=== PATIENT | female | born 1990 | race Caucasian/White ===

== ENCOUNTER → 2020-02-25 10:35 | Outpatient (BNVA) | payer MEDICAID, SELFPAY | PROVIDERS: Family Provider Internal Medicine; PCP Pediatrics; Visit Provider Obstetrics & Gynecology | DX: Z01.419 Encounter for gynecological examination (general) (routine) without abnormal findings (principal) | CPT/HCPCS: 87624; 88175 ==

== ENCOUNTER → 2020-06-15 12:35 | Outpatient (BNVA) | payer MEDICAID, SELFPAY | PROVIDERS: Family Provider Internal Medicine; PCP Pediatrics; Visit Provider Obstetrics & Gynecology | DX: R87.610 Atypical squamous cells of undetermined significance on cytologic smear of cervix (ASC-US) (principal); R87.810 Cervical high risk human papillomavirus (HPV) DNA test positive; Z20.5 Contact with and (suspected) exposure to viral hepatitis | CPT/HCPCS: 86704; 86706; 87340; 88305 ==

== ENCOUNTER → 2021-02-13 11:06 | Outpatient (BNVA) | payer MEDICAID, SELFPAY | PROVIDERS: Family Provider Internal Medicine; PCP Pediatrics; Visit Provider Nurse Practitioner Women's Health | DX: N92.6 Irregular menstruation, unspecified (principal) | CPT/HCPCS: 81025 ==

== ENCOUNTER → 2021-03-01 09:14 | Outpatient (BNVA) | payer MEDICAID, SELFPAY | PROVIDERS: Family Provider Internal Medicine; PCP Pediatrics; Visit Provider Nurse Practitioner Women's Health | DX: Z34.80 Encounter for supervision of other normal pregnancy, unspecified trimester (principal) | CPT/HCPCS: 81000 ==

== ENCOUNTER → 2021-03-15 10:11 | Outpatient (BNVA) | payer MEDICAID, SELFPAY | PROVIDERS: Family Provider Internal Medicine; PCP Pediatrics; Visit Provider Obstetrics & Gynecology | DX: Z34.81 Encounter for supervision of other normal pregnancy, first trimester (principal) | CPT/HCPCS: 80307; 84315; 84443; 85025; 86592; 86762; 86803; 86850; 86900; 87086; 87340 ==

== ENCOUNTER → 2021-04-02 08:04 | Outpatient (BNVA) | payer MEDICAID, SELFPAY | PROVIDERS: Family Provider Internal Medicine; PCP Pediatrics; Visit Provider Obstetrics & Gynecology | DX: Z34.80 Encounter for supervision of other normal pregnancy, unspecified trimester (principal) | CPT/HCPCS: 81000; 87491; 87591; 87661 ==

== ENCOUNTER 2021-04-20 10:48 | Outpatient (CLI) | payer BC, MEDICAID, SELFPAY ==
[2021-04-20 11:16] VITALS: BMI 25.9
[2021-04-20] MEDS: ondansetron 2 mg/ML SDV 2 mL 4 MG IVP (11:30)
[2021-04-20] MEDS: dextrose 5%-lactated ringers 1,000 ML 999 ML IV ×2 (11:30→12:37)
== END 2021-04-20 13:40 | disposition home or self-care (01) ==
LOC: OPOB 10:58 → OBGYN 11:04
PROVIDERS: Family Provider Internal Medicine; PCP Pediatrics; Visit Provider Obstetrics & Gynecology
DX: O21.0 Mild hyperemesis gravidarum (principal)
CPT/HCPCS: 81000; 96360; 99211; J2405

== ENCOUNTER → 2021-05-24 11:23 | Outpatient (BNVA) | payer MEDICAID, SELFPAY | PROVIDERS: Family Provider Internal Medicine; PCP Pediatrics; Visit Provider Obstetrics & Gynecology | DX: Z34.81 Encounter for supervision of other normal pregnancy, first trimester (principal) | CPT/HCPCS: 81000 ==

== ENCOUNTER 2021-06-26 16:55 | Outpatient (CLI) | payer MEDICAID, SELFPAY ==
[2021-06-26 16:55] VITALS: BMI 25.8
[2021-06-26 17:16] VITALS: TEMP 35.7
[2021-06-26 17:17] VITALS: BP 117/58; PULSE 86
[2021-06-26 17:32] VITALS: BP 113/59; PULSE 84
[2021-06-26 17:43] VITALS: RESP 17
[2021-06-26 17:46] VITALS: BP 110/57; PULSE 84
[2021-06-26] MEDS: simethicone 80 mg Chew PO (17:55)
== END 2021-06-26 18:03 | disposition home or self-care (01) ==
LOC: OPOB 17:00 → OBGYN 17:03
PROVIDERS: Family Provider Internal Medicine; PCP Pediatrics; Visit Provider Obstetrics & Gynecology
DX: O26.899 Other specified pregnancy related conditions, unspecified trimester (principal); Z3A.00 Weeks of gestation of pregnancy not specified; R10.9 Unspecified abdominal pain; R14.0 Abdominal distension (gaseous)
CPT/HCPCS: 99211

== ENCOUNTER → 2021-06-28 08:54 | Outpatient (BNVA) | payer BC, MEDICAID, SELFPAY | PROVIDERS: Family Provider Internal Medicine; PCP Pediatrics; Visit Provider Obstetrics & Gynecology | DX: Z34.80 Encounter for supervision of other normal pregnancy, unspecified trimester (principal) | CPT/HCPCS: 81000 ==

== ENCOUNTER → 2021-07-16 10:21 | Outpatient (BNVA) | payer MEDICAID, SELFPAY | PROVIDERS: Family Provider Internal Medicine; PCP Pediatrics; Visit Provider Obstetrics & Gynecology | DX: Z34.81 Encounter for supervision of other normal pregnancy, first trimester (principal) | CPT/HCPCS: 82950; 84315; 84443; 85025 ==

== ENCOUNTER 2021-07-24 15:15 | Outpatient (CLI) | payer MEDICAID, SELFPAY ==
[2021-07-24 16:49] LABS: Ferritin 45 ng/mL (15-150); Iron 53 ug/dL (37-145); Percent Saturation 12.1 % (20-50); Total Iron Binding Capacity 437 mcg/dl; Unsaturated Iron Binding 384 ug/dL (112-347)
[2021-07-24 17:00] LABS: Folate Level 6.5 ng/mL (4.8-37.3)
== END 2021-07-24 15:16 | disposition home or self-care (01) ==
PROVIDERS: PCP Family Medicine; Visit Provider Obstetrics & Gynecology
DX: O99.019 Anemia complicating pregnancy, unspecified trimester (principal)
CPT/HCPCS: 82728; 82746; 83540; 83550

== ENCOUNTER → 2021-08-02 11:32 | Outpatient (BNVA) | payer MEDICAID, SELFPAY | PROVIDERS: PCP Family Medicine; Visit Provider Obstetrics & Gynecology | DX: Z34.80 Encounter for supervision of other normal pregnancy, unspecified trimester (principal) | CPT/HCPCS: 81000 ==

== ENCOUNTER 2021-08-28 21:43 | Outpatient (CLI) | payer MEDICAID, SELFPAY ==
[2021-08-28] VITALS (28 sets, daily range): BP systolic 114; BP diastolic 68; PULSE 70–79; RESP 16; TEMP 36.3; O2SAT 94–99; BMI 27.3
[2021-08-28 22:47] LABS: Bilirubin Urine Neg (Negative); Blood Urine Neg (Negative); Glucose Urine UA Norm (Normal); Ketones Urine Negative (Negative); Leukocyte Esterase Urine Negative (Negative); Nitrate Urine Negative (Negative); Protein Urine Neg (Negative); RBC Urine 0-4 /hpf (0-2); Specific Gravity, Urine 1.005 (1.005-1.030); Urine Appearance Clear (CLEAR); Urine Color Straw (Yellow); Urobilinogen Urine Norm (Negative); pH Urine 7 (5-7)
[2021-08-28 22:48] LABS: Add Urine Culture? No; Bacteria Urine TRACE /hpf; Mucus Urine TRACE /hpf; WBC Urine 0-4 /hpf (0-5)
[2021-08-28] MEDS: dextrose 5%-lactated ringers 1,000 ML 999 ML IV (23:15)
[2021-08-29 00:04] VITALS: PULSE 75; O2SAT 100
[2021-08-29 00:09] VITALS: PULSE 71; O2SAT 99
[2021-08-29 00:14] VITALS: PULSE 82; O2SAT 100
[2021-08-29 00:19] VITALS: PULSE 75; O2SAT 98
[2021-08-29 00:33] VITALS: BP 107/55; PULSE 82; TEMP 36.1
[2021-08-29 00:57] VITALS: BP 107/55; PULSE 82; RESP 16; TEMP 36.1; O2SAT 98
== END 2021-08-29 00:57 | disposition home or self-care (01) ==
LOC: OPOB 21:44 → OBGYN 21:45
PROVIDERS: PCP Family Medicine; Visit Provider Obstetrics & Gynecology
DX: O26.899 Other specified pregnancy related conditions, unspecified trimester (principal); Z3A.00 Weeks of gestation of pregnancy not specified; R06.02 Shortness of breath; H53.9 Unspecified visual disturbance
CPT/HCPCS: 59025; 81001; 99211

== ENCOUNTER → 2021-09-10 09:36 | Outpatient (BNVA) | payer MEDICAID, SELFPAY | PROVIDERS: PCP Family Medicine; Visit Provider Obstetrics & Gynecology | DX: Z34.80 Encounter for supervision of other normal pregnancy, unspecified trimester (principal) | CPT/HCPCS: 81000; 87081; 87086 ==

== ENCOUNTER → 2021-09-17 08:22 | Outpatient (BNVA) | payer MEDICAID, SELFPAY | PROVIDERS: PCP Family Medicine; Visit Provider Obstetrics & Gynecology | DX: Z34.80 Encounter for supervision of other normal pregnancy, unspecified trimester (principal) | CPT/HCPCS: 81000 ==

== ENCOUNTER 2021-10-02 21:47 | Inpatient (IN) | payer BC, MEDICAID, SELFPAY ==
[2021-10-02] VITALS (7 sets, daily range): BP systolic 124–141; BP diastolic 65–76; PULSE 67–83; RESP 17–18
[2021-10-02 22:13] LABS: Basophils % 0.2 %; Eosinophils # 0.1 10^3/uL (0.0-0.8); Eosinophils % 0.8 %; Hematocrit 33.8 % (37.0-47.0); Hemoglobin 10.9 g/dL (11.5-15.3); Lymphocytes # 3.1 10^3/uL (0.8-4.8); Lymphocytes % 24.4 %; Mean Corpuscular HGB Conc 32.2 g/dL (30.0-36.0); Mean Corpuscular Hemoglobin 27.6 pg (28.0-34.0); Mean Corpuscular Volume 85.6 fl (81-99); Mean Platelet Volume 11.6 fL (7.4-10.4); Monocytes # 0.9 10^3/uL (0.2-0.9); Monocytes % 6.7 %; Neutrophils # 8.61 10^3/uL (1.8-7.7); Neutrophils % 67.4 %; Nucleated Red Blood Cells % 0 %; Platelet Count 269 10^3/cmm (130-400); Red Blood Count 3.95 10^6/uL (4.1-5.3); White Blood Count 12.8 10^3/uL (4.0-10.0)
[2021-10-02] MEDS: fentaNYL 50 mcg/mL INJ 2mL IVP (23:06)
[2021-10-02] MEDS: lactated ringers 1,000 ML 999 ML IV (23:22)
[2021-10-03] VITALS (74 sets, daily range): BP systolic 98–152; BP diastolic 54–94; PULSE 55–108; RESP 16–17; TEMP 36.6–37.4; O2SAT 82–100
[2021-10-03] MEDS: lactated ringers 1,000 ML 999 ML IV (00:50)
--- NOTE | 2021-10-03 00:51 | P.ANESASSM_ITS ---
Pre-Anesthetic Assessment Height/Weight: Height 1.7 m Weight 76.204 kg Pulse Resp BP Pulse Ox 77 18 116/64 97 10/03/21 00:49 10/02/21 23:06 10/03/21 00:49 10/03/21 00:47 active labor Familial anesthetic complications: none Social Tobacco 1 pack(s) per day Exam alert, oriented x 3 and clear to auscultation bilaterally Airway Submandibular: within normal limits Cervical ROM: within normal limits Mallampati: Class I Dentition: full History/ROS No significant history except as noted Pulmonary None reported CV/HEM None reported None reported Hepatic None reported GI None reported Metabolic None reported Musc/skel None reported Neuropsych Anxiety Anesthetic Plan ASA status: 2 Anesthesia: Regional (specify below) Other: Labor Epidural Medications/Allergies Home Medications Medication Instructions Recorded Confirmed Last Taken Type pediatric multivitamin no.29 1 tab PO DAILY tab 06/15/20 09/24/21 08/28/21 History (Gummies Girls' Multivitamins) ondansetron HCl 4 mg tablet 4 mg PO Q6H #30 tab 06/13/21 09/24/21 08/28/21 Rx (Zofran) calcium carbonate 200 mg calcium 200 mg PO BID PRN 06/28/21 09/24/21 08/28/21 History (500 mg) chewable tablet (Tums) vit 112-iron 3.33 1 tab PO DAILY tab 08/13/21 09/24/21 08/28/21 History mg-folate 0.33 [id number] chew tablet (Vitafol Gummies) Allergies Allergy/AdvReac Type Severity Reaction Status Date / Time latex Allergy Mild itching Verified 09/24/21 08:46 burning adhesive Allergy rash, Verified 09/24/21 08:46 blisters and peeling of skin codeine Allergy itching, Verified 09/24/21 08:46 rash Penicillins Allergy Hives Verified 09/24/21 08:46 Current Medications Generic Name Dose Route Start Last Admin Trade Name Freq PRN Reason Stop Dose Admin Fentanyl 25 - 100 mcg 10/02/21 22:01 10/02/21 23:06 Fentanyl 50 Mcg/Ml Inj 2ml IVP 25 mcg Q1H PRN Administration SEVERE PAIN Lactated Ringer's 1,000 mls @ 999 mls/hr 10/02/21 22:03 10/02/21 23:22 Lactated Ringers IV 999 mls/hr .Q1H1M PRN Administration See label comments [facility] Anesthesia Medical History Abnormal Pap smear of cervix No pertinent past medical history neghx: htn,dm,thyroid,dvt/pe PCP: [facility] Surgical History S/P tonsillectomy and adenoidectomy (07/02/08) Performed at [facility] in [place], [place] Family History Family/Other Diabetes Maternal Uncle Breast cancer Maternal Aunt--dx age 60's Ovarian cancer Maternal Aunt--dx age late 30's Stroke Mother Hypertension Diabetes Father Hypertension Denies family history of Heart disease Thyroid disease Social History Alcohol intake: former Former alcohol use details: Hasn't since , before was on rare occasion Female Reproductive History : 3 Data Anesthesia : 10/02/21 21:45 Short CBC 10/02/21 Range/Units 21:45 WBC 12.8 H (4.0-10.0) 10^3/uL Hgb 10.9 L (11.5-15.3) g/dL Hct 33.8 L (37.0-47.0) % MCV 85.6 (81-99) fl Plt Count 269 (130-400) 10^3/cmm Neut % (Auto) 67.4 % Neut # (Auto) 8.61 H (1.8-7.7) 10^3/uL Cardiac Studies: No Data to Display Anesthesia Procedures Epidural Time Out Performed: Yes Consent: from patient, risks and benefits reviewed and patient agrees to proceed Lumbar Level: L3-L4 Epidural position: sitting Epidural procedure: sterile prep of area, 1% lidocaine to numb the area, ne gative for paresthesia passed, test dose given, 1.5% xylocaine 1:200k epi, placed PCEA, no systemic response, sterile dressing applied, L.U.D. no apparent complications and 0.2% Ropiavacaine @ mls/hr (13) Additional Comments: ISAIAS at 5.5 cm catheter threaded to 13 with ease.
[2021-10-03] MEDS: ondansetron 2 mg/ML SDV 2 mL 4 MG IVP (01:21)
[2021-10-03] MEDS: dextrose 5%-lactated ringers 1,000 ML 125 ML IV (02:58)
[2021-10-03] MEDS: oxytocin 30 UNIT/500 ML BAG IV (04:48)
[2021-10-03] MEDS: hyDROXYzine 25 mg Capsule 50 MG PO (04:57)
--- NOTE | 2021-10-03 08:16 | PM.OPHPUD ---
Labor & Delivery H&P Update Date of Procedure: October 03, 2021 Date H&P Performed: 09/24/21 H&P update information: I have reviewed H&P completed within last 30 days, I have examined patient prior to procedure and Changes to prior documentation as noted here Changes to previous documentation: The patient had SROM at 1900 hours 10/02. Cervix is 3 Admission Diagnosis: at 39w4d
--- NOTE | 2021-10-03 08:17 | PM.DELIVERY ---
Delivery Note: Date of delivery: October 03, 2021 Pre-delivery diagnoses: iup @ 39w4d, SROM Post-delivery diagnoses: same, delivered Procedure: Delivering Physician: Monica Estimated blood loss (mL): 20 Findings: term male in the ELIO presentation with double nuchal cord Pre-Delivery Course: The patient was admitted with SROM at 1900 hours. She was trisha about every 3 minutes. After 6 hours, there was no cervical change and pitocin was started. Max of 4 mU was given. The patient began having variable decelerations. The pitocin was stopped and resuscitative measures were taken. The patient had complete cervical dilation and began pushing. Delivery: The patient had complete cervical dilation and began to push. After 3 pushes, the heart rate dropped to the 80's. The baby had a small crown. I had the patient continue to push, even without a contraction. The head delivered in the ELIO position over an intact perineum under epidural anesthesia. A double nuchal cord was reduced at the perineum. The nose and mouth were bulb suctioned. The shoulders and body delivered atraumatically. The baby was placed onto the mother's abdomen. The cord was clamped and cut. Cord blood was obtained. The placenta delivered spontaneously. It was inspected and found to be intact. Inspection of the perineum revealed no repair was required. Estimated blood loss 20 ml. Apgars on baby were 8 at 1 minute and 9 at 5 minutes. Weight of baby is 6 pounds 9 ounces. Mother and baby were stable post delivery. History History History 4 Term 2 Miscarriages/Ectopic 1 0 Living Children 2 Coding Level of Care Code Acute [employer] for Chg Naomi
[2021-10-03] MEDS: ibuprofen 800 mg tablet PO ×3 (09:16→20:50)
[2021-10-03] MEDS: lanolin oint 7 gm 1 APPLIC TOPICAL (09:16)
[2021-10-03] MEDS: docusate sodium 100 mg Capsule PO ×2 (09:16→17:39)
[2021-10-03] MEDS: benzocaine-menthol 78 gm Canister 1 SPRAY TOPICAL (09:16)
[2021-10-03] MEDS: prenatal vitamin Capsule 1 CAP PO (09:16)
[2021-10-03] MEDS: acetaminophen 325 mg Tablet 650 MG PO ×2 (12:01→17:40)
--- NOTE | 2021-10-03 15:20 | PC.NURSE ---
pt up to bathroom with minimal assistance. large void. hugo care demonstrated. gown and pad changed. bed linens changed.
[2021-10-03 21:08] LABS: Hematocrit 31.9 % (37.0-47.0); Hemoglobin 10.3 g/dL (11.5-15.3); Mean Corpuscular HGB Conc 32.3 g/dL (30.0-36.0); Mean Corpuscular Hemoglobin 28.4 pg (28.0-34.0); Mean Corpuscular Volume 87.9 fl (81-99); Mean Platelet Volume 11.7 fL (7.4-10.4); Platelet Count 225 10^3/cmm (130-400); Red Blood Count 3.63 10^6/uL (4.1-5.3); Red Cell Distribution Width 14.3 % (12.1-15.1); White Blood Count 12.4 10^3/uL (4.0-10.0)
[2021-10-04] VITALS (7 sets, daily range): BP systolic 118–127; BP diastolic 59–66; PULSE 67–79; RESP 16; TEMP 36.7
--- NOTE | 2021-10-04 10:18 | ANE.PACU2 ---
Inpatient post-anesthesia follow up: Airway intact: Yes Vital signs: Temperature 98.1 F Pulse Rate 67 Respiratory Rate 16 Blood Pressure 118/65 Pulse Oximetry 100 Oxygen Delivery Me thod Non-Rebreather Oxygen Flow Rate 10 Fraction of Inspir ed Oxygen Hydration adequate: Yes Nausea and vomiting: No Pain level: 2 Mental status: Baseline
[2021-10-04] MEDS: prenatal vitamin Capsule 1 CAP PO (11:09)
[2021-10-04] MEDS: docusate sodium 100 mg Capsule PO (11:09)
[2021-10-04] MEDS: ibuprofen 800 mg tablet PO (11:11)
--- NOTE | 2021-10-04 11:53 | P.DS_ITS ---
Discharge Providers Date of Admission: 10/02/21 21:47 Date of Discharge: October 04, 2021 Attending Provider at Admission: Millie Anderson MD Attending Provider at Discharge: Millie Anderson MD Primary Care Provider: Willy Pacheco MD Reason for Visit Reason for Visit: contractions Hospital Course Hospital Course The patient was admitted with SROM. She had spontaneous delivery of a term male . she did well and was requesting discharge on day #1 Physical Exam Narrative: doing well. breast feeding. normal lochia, tolerating a regular diet Const: COMMON NORMALS: no acute distress, average body habitus, patient oriented x3, no limitations, healthy appearing, alert and well nourished GENERAL APPEARANCE: cooperative, comfortable, well kempt and well developed ORIENTATION/CONSCIOUSNESS: Yes awake, Yes oriented to person, Yes oriented to place and Yes oriented to time Resp: COMMON NORMALS: normal respiratory effort EFFORT & INSPECTION: Yes able to speak in complete sentences GI: COMMON NORMALS: Soft to palpation and non-tender PALPATION: Yes Soft to palpation Extremity: COMMON NORMALS: no calf tenderness Neuro: COMMON NORMALS: patient oriented x3 SENSORIUM/ORIENTATION: Yes alert, Yes oriented to person, Yes oriented to place and Yes oriented to time Psych: APPEARANCE: Yes well kempt Urinary Catheter Management: Espinoza: Cath Placed During This Visit: yes, but has since been removed by the nurse Reason for Continuing Indwelling Catheter: Decision to DC Catheter Urinary Catheter Date of Insertion: 10/03/21 Urinary Catheter Time of Insertion: 01:44 Date Urinary Catheter Removed: 10/03/21 Time Urinary Catheter Discontinued: 07:45 Discharge Data Studies Completed and Pending Laboratory Results WBC 12.4 10^3/uL (4.0-10.0) H 10/03/21 21:00 RBC 3.63 10^6/uL (4.1-5.3) L 10/03/21 21:00 Hgb 10.3 g/dL (11.5-15.3) L 10/03/21 21:00 Hct 31.9 % (37.0-47.0) L 10/03/21 21:00 MCV 87.9 fl (81-99) 10/03/21 21:00 MCH 28.4 pg (28.0-34.0) 10/03/21 21:00 MCHC 32.3 g/dL (30.0-36.0) 10/03/21 21:00 RDW 14.3 % (12.1-15.1) 10/03/21 21:00 Plt Count 225 10^3/cmm (130-400) 10/03/21 21:00 MPV 11.7 fL (7.4-10.4) H 10/03/21 21:00 Neut % (Auto) 67.4 % 10/02/21 21:45 Lymph % (Auto) 24.4 % 10/02/21 21:45 Ciales % (Auto) 6.7 % 10/02/21 21:45 Eos % (Auto) 0.8 % 10/02/21 21:45 Baso % (Auto) 0.2 % 10/02/21 21:45 Neut # (Auto) 8.61 10^3/uL (1.8-7.7) H 10/02/21 21:45 Lymph # (Auto) 3.1 10^3/uL (0.8-4.8) 10/02/21 21:45 Ciales # (Auto) 0.9 10^3/uL (0.2-0.9) 10/02/21 21:45 Eos # (Auto) 0.1 10^3/uL (0.0-0.8) 10/02/21 21:45 Baso # (Auto) 0.0 10^3/uL (0.0-0.1) 10/02/21 21:45 Nucleated RBC % (auto) 0 % 10/02/21 21:45 Nucleated RBCs # 0.0 /100WBC 10/02/21 21:45 Vitals Last Vital Signs Temp 98.1 F 10/04/21 10:30 Pulse 79 10/04/21 10:20 Resp 16 10/04/21 10:30 BP 118/59 10/04/21 10:20 Pulse Ox 100 10/03/21 07:57 Discharge Plan Discharge Patient Disposition: Home Condition: Stable Prescriptions: Continued calcium carbonate [Tums] 200 mg calcium (500 mg) tablet,chewable 200 mg PO BID PRN (Reason: Heartburn) 0RF Vitafol Gummies 3.33 mg iron- 0.33 mg tablet,chewable 1 tab PO DAILY 0RF Gummies Girls' Multivitamins Tablet,Chewable 1 tab PO DAILY 0RF ondansetron HCl [Zofran] 4 mg tablet 4 mg PO Q6H Qty: 30 2RF Discharge Orders: Discharge Order (Routine); Ordered 10/04/21 Ordered By: Millie Anderson Patient Instructions: Opioid Safety Discharge Attestations Time Spent in Discharge Care*: less than 30 min Quality Metrics Clinical Quality Measures [ No reported AMI, CVA or VTE this stay] Coding Level of Care Code Acute Chg FW DC note
== END 2021-10-04 12:45 | disposition home or self-care (01) | DRG 807 ==
LOC: OPOB 21:47 → OBGYN 21:47
PROVIDERS: Admitting Provider Obstetrics & Gynecology; PCP Family Medicine; Visit Provider Obstetrics & Gynecology
DX: O69.2XX0 Labor and delivery complicated by other cord entanglement, with compression, not applicable or unspecified (principal); Z37.0 Single live birth; Z3A.39 39 weeks gestation of pregnancy; Z87.891 Personal history of nicotine dependence
CPT/HCPCS: 36415; 51702; 59025; 59409; 83986; 85025; 85027; 99211; J2405; J2795; J3010

== ENCOUNTER → 2021-12-03 11:06 | Outpatient (BNVA) | payer BC, MEDICAID, SELFPAY | PROVIDERS: PCP Family Medicine; Visit Provider Obstetrics & Gynecology | DX: R87.619 Unspecified abnormal cytological findings in specimens from cervix uteri (principal); N89.8 Other specified noninflammatory disorders of vagina | CPT/HCPCS: 87070; 87075; 87205; 87624; 88304 ==

== ENCOUNTER → 2022-03-29 09:37 | Outpatient (BNVA) | payer BC, MEDICAID, SELFPAY | PROVIDERS: PCP Family Medicine; Visit Provider Obstetrics & Gynecology | DX: Z34.90 Encounter for supervision of normal pregnancy, unspecified, unspecified trimester (principal) | CPT/HCPCS: 84443 ==

== ENCOUNTER → 2022-07-17 13:00 | Outpatient (BNVA) | payer BC, MEDICAID, SELFPAY | PROVIDERS: PCP Family Medicine; Visit Provider Obstetrics & Gynecology | DX: R87.619 Unspecified abnormal cytological findings in specimens from cervix uteri (principal) | CPT/HCPCS: 87624 ==

== ENCOUNTER → 2022-09-04 13:04 | Outpatient (BNVA) | payer BC, MEDICAID, SELFPAY | PROVIDERS: PCP Family Medicine; Visit Provider Obstetrics & Gynecology | DX: Z34.90 Encounter for supervision of normal pregnancy, unspecified, unspecified trimester (principal); Z3A.00 Weeks of gestation of pregnancy not specified | CPT/HCPCS: 81025; 88305 ==

== ENCOUNTER 2023-03-21 15:27 | Outpatient (CLI) | payer BC, MEDICAID, SELFPAY ==
--- NOTE | 2023-03-21 15:41 | XRR_ITS ---
PROCEDURE INFORMATION: Exam: XR Left Ankle Exam date and time: 03/21/2023 3:48 PM Age: 32 years old Clinical indication: Injury or trauma; Fall; Sprain or strain; Ankle; Left; Additional info: Ankle joint pain, left TECHNIQUE: Imaging protocol: Radiologic exam of the left ankle. Views: 1 or 2 views. COMPARISON: CR XR ankle LT min 3V* [id number] 04/29/2018 2:56 PM FINDINGS: Limitations: Study is limited two-view examination left ankle. Bones/joints: Osseous structures are intact. No fracture, dislocation or malalignment. There is an indistinct subchondral radiolucency along the lateral talar dome that has developed suspicious for a degenerative osteochondral lesion. Soft tissues: Unremarkable. XR/XR ankle LT 2V [id number] IMPRESSION: 1. No acute bony abnormalities. 2. Findings suspicious for degenerative osteochondral lesion of the lateral talar dome that could be better assessed on follow-up nonemergent MRI exam of the left ankle.
== END 2023-03-21 15:28 | disposition home or self-care (01) ==
PROVIDERS: PCP Family Medicine; Visit Provider Nurse Practitioner Family
DX: M25.572 Pain in left ankle and joints of left foot (principal)
CPT/HCPCS: 73600

== ENCOUNTER 2023-04-22 15:55 | Outpatient (CLI) | payer BC, MEDICAID, SELFPAY ==
--- NOTE | 2023-04-22 | MR_ITS ---
WS: [id number] EXAMINATION: MR ankle LT wo con* [id number] ORDER DATE: 04/22/2023 4:06 PM COMPARISON: None. HISTORY: osteochondral defects CONTRAST: None. TECHNIQUE: Axial proton density fat sat, axial T1, sagittal proton density, sagittal STIR, coronal T2 fat sat, and coronal T1 sequences performed. After contrast, axial T1 fat sat, coronal T1 fat sat, and sagittal T1 fat sat were performed. FINDINGS: Osteochondral lesion involving the lateral talar dome with associated edema. This measures approximat nita 7 mm. No subchondral collapse. Talar dome is otherwise normal in appearance. Distal Achilles is normal. Normal peroneal tendons. Trace tenosynovitis involving the flexor tendons. Normal extensor tendons. Normal cuboid. Normal navicular. Normal cuneiforms. Proximal metatarsals are normal in appearance. Tr jamar fluid in the retrocalcaneal bursa. Normal plantar aponeurosis. Normal bone marrow signal in the c alcaneus. No other acute findings. IMPRESSION: 1. Osteochondral lesion along the lateral talar dome measuring 7 x 8 mm. No subchondral collapse. 2. No other acute findings.
== END 2023-04-22 15:56 | disposition home or self-care (01) ==
LOC: RAD 15:56
PROVIDERS: PCP Family Medicine; Visit Provider Nurse Practitioner Family
DX: M95.8 Other specified acquired deformities of musculoskeletal system (principal); M89.9 Disorder of bone, unspecified
CPT/HCPCS: 73721

== ENCOUNTER 2023-04-29 16:19 | Outpatient (CLI) | payer BC, MEDICAID, SELFPAY | END 2023-04-29 16:20 | disposition home or self-care (01) | LOC: SPT 16:19 | PROVIDERS: PCP Family Medicine; Visit Provider Podiatrist Foot & Ankle Surgery | DX: Z46.89 Encounter for fitting and adjustment of other specified devices (principal); M25.579 Pain in unspecified ankle and joints of unspecified foot | CPT/HCPCS: 97760; L1902 ==

== ENCOUNTER → 2023-05-07 14:01 | Outpatient (BNVA) | payer BC, MEDICAID, SELFPAY | PROVIDERS: PCP Family Medicine; Visit Provider Nurse Practitioner Women's Health | DX: Z34.81 Encounter for supervision of other normal pregnancy, first trimester (principal); Z32.00 Encounter for pregnancy test, result unknown; Z3A.00 Weeks of gestation of pregnancy not specified | CPT/HCPCS: 81025; 84315; 87086 ==

== ENCOUNTER → 2023-05-29 11:05 | Outpatient (BNVA) | payer MEDICAID, SELFPAY | PROVIDERS: PCP Family Medicine; Visit Provider Obstetrics & Gynecology | DX: Z34.91 Encounter for supervision of normal pregnancy, unspecified, first trimester (principal); Z3A.08 8 weeks gestation of pregnancy | CPT/HCPCS: 76801 ==

== ENCOUNTER → 2023-06-06 15:47 | Outpatient (BNVA) | payer MEDICAID, SELFPAY | PROVIDERS: PCP Family Medicine; Visit Provider Nurse Practitioner Women's Health | DX: Z34.90 Encounter for supervision of normal pregnancy, unspecified, unspecified trimester (principal); Z3A.00 Weeks of gestation of pregnancy not specified | CPT/HCPCS: 80307; 84315; 84439; 84443; 84481; 85025; 86592; 86762; 86803; 86850; 86900; 87086; 87340; 87806 ==

== ENCOUNTER → 2023-07-07 15:39 | Outpatient (BNVA) | payer MEDICAID, SELFPAY | PROVIDERS: PCP Family Medicine; Visit Provider Obstetrics & Gynecology | DX: Z34.81 Encounter for supervision of other normal pregnancy, first trimester (principal) | CPT/HCPCS: 81000; 87624 ==

== ENCOUNTER → 2023-07-31 08:23 | Outpatient (BNVA) | payer MEDICAID, SELFPAY | PROVIDERS: PCP Family Medicine; Visit Provider Nurse Practitioner Women's Health | DX: Z34.81 Encounter for supervision of other normal pregnancy, first trimester (principal) | CPT/HCPCS: 81000 ==

== ENCOUNTER → 2023-08-27 09:24 | Outpatient (BNVA) | payer MEDICAID, SELFPAY | PROVIDERS: PCP Family Medicine; Visit Provider Obstetrics & Gynecology | DX: Z34.92 Encounter for supervision of normal pregnancy, unspecified, second trimester (principal); Z3A.20 20 weeks gestation of pregnancy | CPT/HCPCS: 76805 ==

== ENCOUNTER → 2023-09-03 07:58 | Outpatient (BNVA) | payer MEDICAID, SELFPAY | PROVIDERS: PCP Family Medicine; Visit Provider Obstetrics & Gynecology | DX: Z34.81 Encounter for supervision of other normal pregnancy, first trimester (principal); Z3A.00 Weeks of gestation of pregnancy not specified | CPT/HCPCS: 81000 ==

== ENCOUNTER → 2023-09-22 08:07 | Outpatient (BNVA) | payer MEDICAID, SELFPAY | PROVIDERS: PCP Family Medicine; Visit Provider Nurse Practitioner Women's Health | DX: Z34.81 Encounter for supervision of other normal pregnancy, first trimester (principal) | CPT/HCPCS: 80053; 81000 ==

== ENCOUNTER → 2023-10-22 11:40 | Outpatient (BNVA) | payer MEDICAID, SELFPAY | PROVIDERS: PCP Family Medicine; Visit Provider Obstetrics & Gynecology | DX: Z34.81 Encounter for supervision of other normal pregnancy, first trimester (principal); Z3A.00 Weeks of gestation of pregnancy not specified | CPT/HCPCS: 81000; 82950 ==

== ENCOUNTER → 2023-11-04 08:03 | Outpatient (BNVA) | payer MEDICAID, SELFPAY | PROVIDERS: PCP Family Medicine; Visit Provider Obstetrics & Gynecology | DX: Z34.90 Encounter for supervision of normal pregnancy, unspecified, unspecified trimester (principal); Z3A.00 Weeks of gestation of pregnancy not specified | CPT/HCPCS: 81000 ==

== ENCOUNTER → 2023-11-18 09:02 | Outpatient (BNVA) | payer MEDICAID, SELFPAY | PROVIDERS: PCP Family Medicine; Visit Provider Obstetrics & Gynecology | DX: Z34.93 Encounter for supervision of normal pregnancy, unspecified, third trimester (principal); Z3A.32 32 weeks gestation of pregnancy | CPT/HCPCS: 76816; 81000 ==

== ENCOUNTER → 2023-12-17 11:00 | Outpatient (BNVA) | payer MEDICAID, SELFPAY | PROVIDERS: PCP Family Medicine; Visit Provider Obstetrics & Gynecology | DX: Z34.81 Encounter for supervision of other normal pregnancy, first trimester (principal); Z3A.00 Weeks of gestation of pregnancy not specified | CPT/HCPCS: 87081 ==

== ENCOUNTER → 2023-12-22 07:59 | Outpatient (BNVA) | payer MEDICAID, SELFPAY | PROVIDERS: PCP Family Medicine; Visit Provider Obstetrics & Gynecology | DX: Z34.81 Encounter for supervision of other normal pregnancy, first trimester (principal); Z3A.00 Weeks of gestation of pregnancy not specified | CPT/HCPCS: 81000 ==

== ENCOUNTER → 2023-12-29 09:24 | Outpatient (BNVA) | payer MEDICAID, SELFPAY | PROVIDERS: PCP Family Medicine; Visit Provider Obstetrics & Gynecology | DX: Z34.90 Encounter for supervision of normal pregnancy, unspecified, unspecified trimester (principal); Z3A.00 Weeks of gestation of pregnancy not specified | CPT/HCPCS: 81000 ==

== ENCOUNTER 2024-01-05 21:21 | Inpatient (IN) | payer MEDICAID, SELFPAY ==
[2024-01-05] VITALS (19 sets, daily range): BP systolic 118–148; BP diastolic 65–84; PULSE 70–98; O2SAT 98–100; BMI 29.4
[2024-01-05 21:42] LABS: Basophils # 0.1 10^3/uL (0.0-0.1); Basophils % 0.5 %; Eosinophils # 0.2 10^3/uL (0.0-0.8); Eosinophils % 1.3 %; Hematocrit 31.9 % (36-47); Lymphocytes # 2.9 10^3/uL (0.8-4.8); Lymphocytes % 24.6 %; Mean Corpuscular HGB Conc 33.2 g/dL (30-55); Mean Corpuscular Hemoglobin 27.1 pg (27-33); Mean Corpuscular Volume 81.6 fl (85-98); Mean Platelet Volume 11.6 fL (7.4-10.4); Monocytes # 0.8 10^3/uL (0.2-0.9); Monocytes % 6.7 %; Neutrophils # 7.89 10^3/uL (1.8-7.7); Neutrophils % 66.6 %; Nucleated Red Blood Cells % 0 %; Platelet Count 294 10^3/cmm (157-399); Red Blood Count 3.91 10^6/uL (3.85-5.65); Red Cell Distribution Width 14.2 % (12.1-15.1); White Blood Count 11.84 10^3/uL (3.29-11.43)
--- NOTE | 2024-01-05 21:50 | P.HP_ITS ---
Providers/Chief Complaint 2 Admitting Physician: Blair mAato MD Primary RN PROCEDURES: Blair Amato MD Primary Care Provider: Willy Pacheco MD Chief Complaint: CTX,SPOTTING,POSS LABOR HPI RN PROCEDURES History of Present Illness Sherie Salmon is a 33 year old female A1 EDC January 09, 2024 At 39 w 3 d No complications Presents to L&D c/o painful uterine contractions No bleeding, fluid leakage + movements Present Details : 4 Para: 3 Medications/Allergies Home Medications Medication Instructions Recorded Confirmed Last Taken Type ASO brace #1 ea 04/29/23 01/05/24 Unknown Rx metoclopramide HCl 10 mg tablet 10 mg PO Q6H PRN nausea and 05/30/23 01/05/24 Unknown Rx (Reglan) vomiting #30 tabs ondansetron HCl 4 mg tablet 4 mg PO Q8H PRN nausea and 05/30/23 01/05/24 Unknown Rx vomiting #30 tabs methocarbamol 500 mg tablet 500 mg PO BID #30 tabs 12/27/23 01/05/24 Unknown Rx Allergies Allergy/AdvReac Type Severity Reaction Status Date / Time latex Allergy Mild itching Verified 01/05/24 09:59 burning adhesive Allergy rash, Verified 01/05/24 09:59 blisters and peeling of skin codeine Allergy itching, Verified 01/05/24 09:59 rash Penicillins Allergy ALGY-Anaphy Verified 01/05/24 09:59 laxis PFSH RN PROCEDURES 2 PFSH: Medical History No pertinent past medical history neghx: htn,dm,thyroid,dvt/pe [facility] Abnormal Pap smear of cervix Surgical History S/P tonsillectomy and adenoidectomy (07/02/08) Performed at [facility] [place] [place] in [place], [place] Family History Family/Other Diabetes Maternal Uncle Breast cancer Maternal Aunt--dx age 60's Ovarian cancer Maternal Aunt--dx age late 30's Stroke Mother Hypertension Diabetes Father Hypertension Denies family history of Heart disease Thyroid disease Social History Smoking and tobacco/nicotine status: former use of tobacco/nicotine Other Female Reproductive History: Hx Age of Menarche: 8 History History History 2 5 Term 3 0 Miscarriages/Ectopic 1 Living Children 3 Care DONAVAN Calculator 2 Estimated Delivery Date Method Current WG Current Estimate 01/09/24 LMP (Certain) 39w 4d Other Estimates 01/07/24 Ultrasound #1 39w 6d Vitals/I&O/Wt Last Vital Signs Pulse 66 01/06/24 02:36 BP 114/56 01/06/24 02:36 Pulse Ox 98 01/06/24 00:16 O2 Del Method Room Air 01/05/24 21:26 01/05/24 01/05/24 01/06/24 14:59 22:59 06:59 Intake Total 1999 Balance 1999 Weight last 48 hrs Weight 188 lb Physical Exam 2 Narrative: Weight 188 lbs; 5?7? VS normal General awake, alert Lungs: clear Cor: RRR FH 38 cm, cephalic Cervix: 2 / 75% / -2 Ext: normal External monitor: regular UCs heart tracing good variability, + accelerations Urinary Catheter Management: Espinoza Latex Free: Cath Placed During This Visit: yes Urinary Catheter Date of Insertion: 01/06/24 Urinary Catheter Time of Insertion: 00:50 Data 01/05/24 21:25 Results Labs OB ([facility]): 2 Obstetrics US 11/18/23 Blood Type O Positive 01/05/24 Antibody Screen Negative 01/05/24 Hct 31.9 % (36-47) L 01/05/24 Hgb 10.60 g/dL (11.27-16.99) L 01/05/24 Rho(D) Type Rh positive 01/05/24 Plt Count 294 10^3/cmm (157-399) 01/05/24 Hep Bs Antigen Non-reactive (Nonreactive) 06/06/23 Hep B Core Total Ab Non-reactive (Nonreactive) 06/15/20 Hep Bs Antibody 45.3 (0-8.5) H 06/15/20 Hepatitis C Antibody Non-reactive (Nonreactive) 06/06/23 Rubella IgG Antibody 122.2 IU/mL (0.0-10.0) H 06/06/23 RPR Nonreactive (Nonreactive) 06/06/23 HIV 1&2 Ab & HIV 1 Ag Non-reactive (Non-Reactiv) 06/06/23 TSH 0.66 uIU/mL (0.27-4.20) 06/06/23 Free T4 1.40 ng/dL (0.82-1.77) 06/06/23 Cystic Fibrosis Screen Negative 06/06/23 Glucose 1 Hr 50 gm 126 mg/dL (85-140) 10/22/23 Gest Glucose Tolerance 102 mg/dL 07/16/21 HCG, Qual Positive (Negative) H 05/07/23 Urine Opiates Screen Negative ng/mL (Negative) 06/06/23 Ur Barbiturates Screen Negative ng/mL (Negative) 06/06/23 Ur Phencyclidine Scrn Negative ng/mL (Negative) 06/06/23 Ur Amphetamines Screen Negative ng/mL (Negative) 06/06/23 U Benzodiazepines Scrn Negative ng/mL (Negative) 06/06/23 Urine Cocaine Screen Negative ng/mL (Negative) 06/06/23 U Marijuana (THC) Screen Negative ng/mL (Negative) 06/06/23 Micro Urine Specimen 06/06/23 Pap Smear Interpret See note A 07/07/23 A&P Assessment and plan (1) Active labor: 39 w 3 d Active labor Painful uterine contractions Plan admit Expectant management Attestations 2 Medical Necessity Statement*: patient at 39 w 3 d, admitted with active labor at term Coding Level of Care Code Acute Code for Chg Fwd Diagnoses Active labor Time Spent (min) 60
[2024-01-05] MEDS: lactated ringers 1,000 ML 999 ML IV ×2 (22:00→23:02)
[2024-01-05] MEDS: hyDROXYzine 25 mg Capsule 50 MG PO (23:10)
--- NOTE | 2024-01-05 23:23 | ANES.PREANE2 ---
Pre-Anesthetic Assessment Height/Weight: Height 1.7 m Weight 85.275 kg Pulse BP Pulse Ox 88 133/73 99 01/05/24 23:36 01/05/24 23:36 01/05/24 23:36 Preop Diagnosis: labor pain epidural Familial anesthetic complications: none Was Beta Kaylynn taken within 24 hours: N/A Was Clonidine taken within 24 hours: N/A Social No alcohol and No tobacco Exam alert and oriented x 3 Airway Submandibular: within normal limits Cervical ROM: within normal limits Mallampati: Class II Dentition: full History/ROS No significant complaints Pulmonary None reported CV/HEM None reported None reported Hepatic None reported GI None reported Metabolic None reported Musc/skel None reported Neuropsych None reported Anesthetic Plan ASA status: 2 Anesthesia: Anesthesia Evaluation, General and Regional (specify below) Risk of > 500 ml blood loss (7ml/kg in children): No Medications/Allergies Home Medications Medication Instructions Recorded Confirmed Last Taken Type ASO brace #1 ea 04/29/23 01/05/24 Unknown Rx metoclopramide HCl 10 mg tablet 10 mg PO Q6H PRN nausea and 05/30/23 01/05/24 Unknown Rx (Reglan) vomiting #30 tabs ondansetron HCl 4 mg tablet 4 mg PO Q8H PRN nausea and 05/30/23 01/05/24 Unknown Rx vomiting #30 tabs methocarbamol 500 mg tablet 500 mg PO BID #30 tabs 12/27/23 01/05/24 Unknown Rx Allergies Allergy/AdvReac Type Severity Reaction Status Date / Time latex Allergy Mild itching Verified 01/05/24 09:59 burning adhesive Allergy rash, Verified 01/05/24 09:59 blisters and peeling of skin codeine Allergy itching, Verified 01/05/24 09:59 rash Penicillins Allergy ALGY-Anaphy Verified 01/05/24 09:59 laxis Current Medications Generic Name Dose Route Start Last Admin Trade Name Freq PRN Reason Stop Dose Admin Hydroxyzine Pamoate 50 mg 01/05/24 21:15 01/05/24 23:10 Hydroxyzine 25 Mg Capsule PO 50 mg QID PRN Administration sleep, agitation or itching Lactated Ringer's 1,000 mls @ 999 mls/hr 01/05/24 21:19 01/05/24 22:00 Lactated Ringers IV 999 mls/hr .Q1H1M PRN Administration See label comments PFSH Anesthesia Medical History No pertinent past medical history neghx: htn,dm,thyroid,dvt/pe PCP: [facility] Abnormal Pap smear of cervix Surgical History S/P tonsillectomy and adenoidectomy (07/02/08) Performed at [facility] in [place], [place] Family History Family/Other Diabetes Maternal Uncle Breast cancer Maternal Aunt--dx age 60's Ovarian cancer Maternal Aunt--dx age late 30's Stroke Mother Hypertension Diabetes Father Hypertension Denies family history of Heart disease Thyroid disease Social History Smoking and tobacco/nicotine status: former use of tobacco/nicotine Female Reproductive History : 4 Data Anesthesia 01/05/24 21:25 Short CBC 01/05/24 Range/Units 21:25 WBC 11.84 H (3.29-11.43) 10^3/uL Hgb 10.60 L (11.27-16.99) g/dL Hct 31.9 L (36-47) % MCV 81.6 L (85-98) fl Plt Count 294 (157-399) 10^3/cmm Neut % (Auto) 66.6 % Neut # (Auto) 7.89 H (1.8-7.7) 10^3/uL Blood Bank 01/05/24 21:25 Blood Type O Positive Rho(D) Type Rh positive Antibody Screen Negative Cardiac Studies: No Data to Display
--- NOTE | 2024-01-05 23:41 | ANES.PROC ---
Documented by User: Kathryn Renae CRNA 01/05/24 23:42 Anesthesia Procedures Procedure/Date: 01/05/24 Epidural: Time Out Performed: Yes Consents Signed: Procedure Consent Consent: from patient, risks and benefits reviewed and patient agrees to proceed Lumbar Level: L3-L4 Epidural position: sitting Epidural procedure: sterile prep of area, 1% lidocaine to numb the area, 18 g needle, negative for paresthesia passed, neg for paresthesia, test dose given, 1.5% xylocaine 1:200k epi, placed PCEA, no systemic response, sterile dressing applied, L.U.D. no apparent complications and 0.2% Ropiavacaine @ mls/hr (13) Additional Comments: ISAIAS at 5.5, negative aspiration. taped at 12 at skin Documented by User: Lazarus Lozano DO 01/06/24 13:42 Anesthesia Procedures Procedure/Date: 01/06/24 Procedure Narrative: called for increased pain at 1000am. patient given 100mcg fentanyl and 3ml 0.25% bupivicaine in epidural Documented by User: Ramin Morrissey CRNA 01/09/24 06:14 Anesthesia Procedures Procedure/Date: 01/09/24
[2024-01-05] MEDS: ROPivacaine syringe 100 MG/50 ML SYRINGE 13 MG EPIDURAL (23:43)
[2024-01-06] VITALS (84 sets, daily range): BP systolic 98–142; BP diastolic 52–100; PULSE 53–93; RESP 18; TEMP 36.8; O2SAT 98
[2024-01-06] MEDS: dextrose 5%-lactated ringers 1,000 ML 125 ML IV ×2 (01:29→09:23)
[2024-01-06] MEDS: ondansetron 2 mg/ML SDV 2 mL 4 MG IVP (02:06)
[2024-01-06] MEDS: ROPivacaine syringe 100 MG/50 ML SYRINGE 13 MG EPIDURAL ×3 (03:09→10:15)
[2024-01-06] MEDS: hyDROXYzine 25 mg Capsule 50 MG PO (11:48)
--- NOTE | 2024-01-06 13:05 | PM.DELIVERY ---
Delivery Note: Date of delivery: January 06, 2024 Pre-delivery diagnoses: term active labor Post-delivery diagnoses: term active labor vaginal delivery Procedure: vaginal delivery Op report anesthesia: Epidural Delivering Physician: Blair Amato MD Estimated blood loss (mL): 300 Findings: , vigorous infant Normal placenta and cord No episiotomy or lacerations EBL: 300 cc No complications Pre-Delivery Course: normal labor course Delivery: vaginal Post-Delivery Status: good History History History 5 Term 3 0 Miscarriages/Ectopic 1 Living Children 3 A&P Assessment and plan (1) Vaginal delivery: Coding Level of Care Code Acute Code for Chg Fwd Diagnoses Vaginal delivery O80 Time Spent (min) 60
[2024-01-06] MEDS: ibuprofen 800 mg tablet PO (16:26)
[2024-01-06] MEDS: oxytocin 30 UNIT/500 ML BAG 600 UNIT IV (16:59)
[2024-01-06] MEDS: docusate sodium 100 mg Capsule PO (18:53)
[2024-01-07] VITALS: BP 125/60; PULSE 65; TEMP 36.6; TEMP 36.7
[2024-01-07 00:58] LABS: Hematocrit 29.8 % (36-47); Mean Corpuscular HGB Conc 33.2 g/dL (30-55); Mean Corpuscular Hemoglobin 27.5 pg (27-33); Mean Corpuscular Volume 82.8 fl (85-98); Mean Platelet Volume 11.6 fL (7.4-10.4); Platelet Count 212 10^3/cmm (157-399); Red Cell Distribution Width 14.4 % (12.1-15.1); White Blood Count 9.27 10^3/uL (3.29-11.43)
[2024-01-07] MEDS: ibuprofen 800 mg tablet PO ×2 (00:58→08:40)
[2024-01-07 03:00] VITALS: BP 117/74; PULSE 65; RESP 17; TEMP 36.6; TEMP 36.7
--- NOTE | 2024-01-07 08:00 | ANE.PACU2 ---
Inpatient post-anesthesia follow up: Airway intact: Yes Vital signs: Temperature 98 F Pulse Rate 68 Respiratory Rate 16 Blood Pressure 126/80 Pulse Oximetry 98 Oxygen Delivery Me thod Room Air Oxygen Flow Rate Fraction of Inspir ed Oxygen Hydration adequate: Yes Nausea and vomiting: No Pain level: 1 Mental status: Baseline Epidural Start/End: Epidural Start Date: 01/05/24 Epidural Start Time: 23:23 Epidural End Date: 01/06/24 Epidural End Time: 16:21
[2024-01-07] MEDS: docusate sodium 100 mg Capsule PO (08:40)
[2024-01-07 09:45] VITALS: BP 131/79; PULSE 75; RESP 15; TEMP 36.6; TEMP 36.7; O2SAT 98
--- NOTE | 2024-01-07 13:05 | P.PN_ITS ---
RADIATION ONCOLOGY THERAPIST Subjective 2 Subjective: Interval history: no c/o no bleeding, pain eating, voiding, ambulating well caring for without any problems Labor: Station: +1 Amniotic Membrane Status: Ruptured Monitor Mode: External Contraction Pattern: Regular Vitals/I&O/Wt Last Vital Signs Temp 98 F 01/07/24 15:06 Pulse 68 01/07/24 15:06 Resp 16 01/07/24 15:06 BP 126/80 01/07/24 15:06 Pulse Ox 98 01/07/24 09:45 O2 Del Method Room Air 01/07/24 09:45 Physical Exam 2 Narrative: afebrile, VS normal comfortable, awake, alert Abd: soft, nontender. fundus firm Ext: no edema; nontender Urinary Catheter Management: Espinoza Latex Free: Cath Placed During This Visit: yes, but has since been removed by the nurse Reason for Continuing Indwelling Catheter: Decision to DC Catheter Urinary Catheter Date of Insertion: 01/06/24 Urinary Catheter Time of Insertion: 00:50 Date Urinary Catheter Removed: 01/06/24 Time Urinary Catheter Discontinued: 12:40 Data 01/07/24 00:46 A&P Assessment and plan (1) Vaginal delivery: PPD #1 doing well discharge to home today instructions and precautions given call/return if fever, chills, headache, blurry vision, nausea, vomiting, abdominal pain; vaginal bleeding or discharge; shortness of breath, chest pain, leg pains or swelling; inability to void, perineal pain or swelling; feelings of depression or mood changes; thoughts of suicide or harming others; inability to care for baby. f/u in 6 weeks or PRN Attestations 2 Medical Necessity Statement*: patient s/p vaginal delivery, plan discharge to home today Coding Level of Care Code Acute Code for Chg Fwd Diagnoses Vaginal delivery O80 Time Spent (min) 20
--- NOTE | 2024-01-07 13:10 | PM.OBGYDC ---
Discharge Providers SUPERVISOR [employer] Date of Admission: 01/05/24 21:21 Date of Discharge: 01/07/24 Attending Provider at Admission: Blair Amato MD Attending Provider at Discharge: Blair Amato MD Consults: none Primary SUPERVISOR W[employer]: Blair Amato MD Primary Care Provider: Willy Pacheco MD Diagnoses at Discharge Discharge Diagnosis (1) Vaginal delivery: Details from hospital stay: 33 y.o. A1 admitted at 39 w 3 d with active labor patient progressed to complete cervical dilatation fetus was reassuring throughout patient had spontaneous vaginal delivery without any lacerations there were no complications She was discharged to home on the first day Status: Acute Reason for Visit Reason for Visit: CTX,SPOTTING,POSS LABOR Brief History: 33 y.o. A1 admitted at 39 w 3 d with active labor Hospital Course Hospital Course 33 y.o. A1 admitted at 39 w 3 d with active labor patient progressed to complete cervical dilatation fetus was reassuring throughout patient had spontaneous vaginal delivery without any lacerations there were no complications She was discharged to home on the first day Information Peripartum Data: Delivery Method: Vaginal Laceration description: None Episiotomy description: None complications: none Physical Exam Narrative: afebrile, VS normal comfortable, awake, alert Abd: soft, nontender. fundus firm Ext: no edema; nontender Urinary Catheter Management: Espinoza Latex Free: Cath Placed During This Visit: yes, but has since been removed by the nurse Reason for Continuing Indwelling Catheter: Decision to DC Catheter Urinary Catheter Date of Insertion: 01/06/24 Urinary Catheter Time of Insertion: 00:50 Date Urinary Catheter Removed: 01/06/24 Time Urinary Catheter Discontinued: 12:40 History History History 5 Term 3 0 Miscarriages/Ectopic 1 Living Children 3 Discharge Data Studies Completed and Pending Laboratory Results WBC 9.27 10^3/uL (3.29-11.43) 01/07/24 00:46 RBC 3.60 10^6/uL (3.85-5.65) L 01/07/24 00:46 Hgb 9.90 g/dL (11.27-16.99) L 01/07/24 00:46 Hct 29.8 % (36-47) L 01/07/24 00:46 MCV 82.8 fl (85-98) L 01/07/24 00:46 MCH 27.5 pg (27-33) 01/07/24 00:46 MCHC 33.2 g/dL (30-55) 01/07/24 00:46 RDW 14.4 % (12.1-15.1) 01/07/24 00:46 Plt Count 212 10^3/cmm (157-399) 01/07/24 00:46 MPV 11.6 fL (7.4-10.4) H 01/07/24 00:46 Neut % (Auto) 66.6 % 01/05/24 21:25 Lymph % (Auto) 24.6 % 01/05/24 21:25 Bryan % (Auto) 6.7 % 01/05/24 21: Eos % (Auto) 1.3 % 01/05/24 21: Baso % (Auto) 0.5 % 01/05/24 21: Neut # (Auto) 7.89 10^3/uL (1.8-7.7) H 01/05/24 21:25 Lymph # (Auto) 2.9 10^3/uL (0.8-4.8) 01/05/24 21:25 Bryan # (Auto) 0.8 10^3/uL (0.2-0.9) 01/05/24 21:25 Eos # (Auto) 0.2 10^3/uL (0.0-0.8) 01/05/24 21:25 Baso # (Auto) 0.1 10^3/uL (0.0-0.1) 01/05/24 21: Nucleated RBC % (auto) 0 % 01/05/24 21: Nucleated RBCs # 0.0 /100WBC 01/05/24 21:25 Blood Type O Positive 01/05/24 21:25 Rho(D) Type Rh positive 01/05/24 21: Antibody Screen Negative 01/05/24 21: Procedures Performed vaginal delivery Vitals Last Vital Signs Temp 98 F 01/07/24 15:06 Pulse 68 01/07/24 15:06 Resp 16 01/07/24 15:06 BP 126/80 01/07/24 15:06 Pulse Ox 98 01/07/24 09:45 O2 Del Method Room Air 01/07/24 09:45 Results Labs OB ([facility]): Obstetrics US 11/18/23 Blood Type O Positive 01/05/24 Antibody Screen Negative 01/05/24 Hct 29.8 % (36-47) L 01/07/24 Hgb 9.90 g/dL (11.27-16.99) L 01/07/24 Rho(D) Type Rh positive 01/05/24 Plt Count 212 10^3/cmm (157-399) 01/07/24 Hep Bs Antigen Non-reactive (Nonreactive) 06/06/23 Hep B Core Total Ab Non-reactive (Nonreactive) 06/15/20 Hep Bs Antibody 45.3 (0-8.5) H 06/15/20 Hepatitis C Antibody Non-reactive (Nonreactive) 06/06/23 Rubella IgG Antibody 122.2 IU/mL (0.0-10.0) H 06/06/23 RPR Nonreactive (Nonreactive) 06/06/23 HIV 1&2 Ab & HIV 1 Ag Non-reactive (Non-Reactiv) 06/06/23 TSH 0.66 uIU/mL (0.27-4.20) 06/06/23 Free T4 1.40 ng/dL (0.82-1.77) 06/06/23 Cystic Fibrosis Screen Negative 06/06/23 Glucose 1 Hr 50 gm 126 mg/dL (85-140) 10/22/23 Gest Glucose Tolerance 102 mg/dL 07/16/21 HCG, Qual Positive (Negative) H 05/07/23 Urine Opiates Screen Negative ng/mL (Negative) 06/06/23 Ur Barbiturates Screen Negative ng/mL (Negative) 06/06/23 Ur Phencyclidine Scrn Negative ng/mL (Negative) 06/06/23 Ur Amphetamines Screen Negative ng/mL (Negative) 06/06/23 U Benzodiazepines Scrn Negative ng/mL (Negative) 06/06/23 Urine Cocaine Screen Negative ng/mL (Negative) 06/06/23 U Marijuana (THC) Screen Negative ng/mL (Negative) 06/06/23 Micro Urine Specimen 06/06/23 Pap Smear Interpret See note A 07/07/23 Discharge Plan Discharge Patient Disposition: Home Condition: Stable Prescriptions: Continued (DME) ASO brace See Rx Instructions .Route .MEDSUPPLY Qty: 1 0RF Rx Instructions: As directed methocarbamol 500 mg tablet 500 mg PO BID Qty: 30 1RF ondansetron HCl 4 mg tablet 4 mg PO Q8H PRN (Reason: nausea and vomiting) Qty: 30 3RF metoclopramide HCl [Reglan] 10 mg tablet 10 mg PO Q6H PRN (Reason: nausea and vomiting) Qty: 30 3RF Discharge Orders: Discharge Order (Routine); Ordered 01/07/24 Ordered By: Blair Amato Referrals: Blair Amato MD [Physician] - 6 Weeks (6 week Follow up appointment is scheduled on 02/18/24 @ 12:45pm with Dr. Amato. ) Discharge Diet: Usual diet Discharge Activity: Increase activity as tolerated Patient Instructions: Depression (DC), Preeclampsia and Eclampsia After Delivery (GEN), Hemorrhage (DC), OB Discharge Report, OB Food/Drug Interaction Guide, OB Care at Home, Opioid Safety, OB Home Care, OB Vaginal Deliveries, Abnormal Bleeding Discharge Attestations SUPER[employer] Time Spent in Discharge Care*: less than 30 min Coding Level of Care Code Acute Code for Chg Fwd Diagnoses Vaginal delivery O80 Time Spent (min) 20
[2024-01-07 15:06] VITALS: BP 126/80; PULSE 68; RESP 16; TEMP 36.6
== END 2024-01-07 15:45 | disposition home or self-care (01) | DRG 998 ==
LOC: OPOB 21:22 → OBGYN 21:22
PROVIDERS: Admitting Provider Obstetrics & Gynecology; PCP Family Medicine; Visit Provider Obstetrics & Gynecology
DX: O80 Encounter for full-term uncomplicated delivery (principal); Z3A.39 39 weeks gestation of pregnancy
CPT/HCPCS: 36415; 51702; 59025; 59409; 84315; 85025; 85027; 86850; 86900; 96374; J2405; J2590; J2795; J3010; J3490; J7120; J7121

== ENCOUNTER 2024-02-26 08:28 | Day surgery (SDC) | payer MEDICAID, SELFPAY ==
--- NOTE | 2024-02-24 12:13 | SUR.PREOP ---
Addendum entered by Sari Julien 02/25/24 10:07: 02/24/24 1115 pt asked what time her surgery was and informed her that we have patients to arrive 1.5 hrs and explained the process because she stated that she had NEVER had surgery before. I said that there are alot of things we have to do like v/s going over medications,starting iv and possibly labs and or urine and patients can't just come in and go straight to surgery. She said I'm Not Stupid, I've had surgery before at the surgery center when i was 17 or so. I apologized to patient and i stated that I did not mean to upset or make her feel that way. After this she was back to telling me that she needed to know when surgery was and also the time of arrival. 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 I reassured her that we could try to accommodate her arrival time. Shruthi(embossing unit operator) contacted 's office and informed Demetrius(office nurse) of this. 1200 Called patient and informed her that her surgery time for is 950 and arrival time is 0820,pt verbalized understanding
[2024-02-26] VITALS (9 sets, daily range): BP systolic 104–149; BP diastolic 71–100; PULSE 55–96; RESP 17–18; TEMP 36.9–37; O2SAT 93–99; BMI 28.5
--- NOTE | 2024-02-26 06:56 | W.PM.OPSFHP ---
Same Day Surgery H&P Indication for Procedure/HPI DATE OF PROCEDURE: February 26, 2024 CHIEF COMPLAINT/INDICATIONFOR SURGICAL PROCEDURE: abnormal pap c/w high-grade squamous epithelial lesion PREOP DIAGNOSIS: abnormal pap PLANNED PROCEDURE: Operation Date: 02/26/24 10:05 Proposed Procedures p Cervical Conization 12051, R87.613(Not Applicable) - Blair Amato MD 33 y.o. with abnormal pap c/w high-grade squamous intraepithelial lesion now scheduled for conization of cervix Medications/Allergies* Allergies/Adverse Reactions Allergy/AdvReac Type Severity Reaction Status Date / Time latex Allergy Mild itching Verified 02/25/24 12:38 burning adhesive Allergy rash, Verified 02/25/24 12:38 blisters and peeling of skin codeine Allergy itching, Verified 02/25/24 12:38 rash Penicillins Allergy ALGY-Anaphy Verified 02/25/24 12:38 laxis Pertinent History/Comorbid Conditions* Medical History (Updated 02/19/24 @ 00:02 by RAFA Grande) Vaginal delivery Active labor No pertinent past medical history neghx: htn,dm,thyroid,dvt/pe PCP: [facility] Abnormal Pap smear of cervix Surgical History (Updated 02/27/20 @ 16:16 by Pawan Valdovinos MD) S/P tonsillectomy and adenoidectomy (07/02/08) Performed at [facility] in [place], [place] Family History (Updated 02/13/21 @ 11:16 by Lyn Jones) Ovarian cancer Family/Other Maternal Aunt--dx age late 30's Diabetes Family/Other Maternal Uncle Mother Breast cancer Family/Other Maternal Aunt--dx age 60's Hypertension Mother Father Stroke Family/Other Denies family history of Heart disease Thyroid disease Social History Smoking and tobacco/nicotine status: former use of tobacco/nicotine Pertinent Exam Findings alert, oriented x 3, clear to auscultation bilaterally and regular rate & rhythm Recommendations Surgery/Procedure today Coding Level of Care Code Acute Code for Chg Fwd Time Spent (min) 20
--- NOTE | 2024-02-26 08:59 | ANES.PREANE2 ---
Pre-Anesthetic Assessment Height/Weight: Height 1.7 m Preop Diagnosis: abnormal pap Operation Date: 02/26/24 10:05 Proposed Procedures p Cervical Conization 86762, R87.613(Not Applicable) - Blair Amato MD Familial anesthetic complications: None Was Beta Kaylynn taken within 24 hours: N/A Was Clonidine taken within 24 hours: N/A Last intake: > 8hrs Social No alcohol and No tobacco Exam alert, oriented x 3, clear to auscultation bilaterally and regular rate & rhythm Airway Mallampati: Class I Dentition: full Anesthetic Plan ASA status: 2 Anesthesia: General Risk of > 500 ml blood loss (7ml/kg in children): No Medications/Allergies Home Medications Medication Instructions Recorded Confirmed Last Taken Type ASO brace #1 ea 04/29/23 02/18/24 Unknown Rx Allergies Allergy/AdvReac Type Severity Reaction Status Date / Time adhesive Allergy Severe rash, Verified 02/26/24 08:40 blisters and peeling of skin latex Allergy Mild itching Verified 02/25/24 12:38 burning codeine Allergy itching, Verified 02/25/24 12:38 rash Penicillins Allergy ALGY-Anaphy Verified 02/25/24 12:38 laxis PFSH Anesthesia Medical History Vaginal delivery Active labor No pertinent past medical history neghx: htn,dm,thyroid,dvt/pe PCP: [facility] Abnormal Pap smear of cervix Surgical History S/P tonsillectomy and adenoidectomy (07/02/08) Performed at [facility] in [place], [place] Family History Family/Other Diabetes Maternal Uncle Breast cancer Maternal Aunt--dx age 60's Ovarian cancer Maternal Aunt--dx age late 30's Stroke Mother Hypertension Diabetes Father Hypertension Denies family history of Heart disease Thyroid disease Social History Smoking and tobacco/nicotine status: former use of tobacco/nicotine Data Anesthesia Cardiac Studies: No Data to Display
[2024-02-26] MEDS: sodium chloride 0.9% 1,000 ML 30 ML IV (09:30)
[2024-02-26 09:32] LABS: OR HCG Qualitative Urine Negative (Negative)
--- NOTE | 2024-02-26 09:37 | W.PM.OPSUD ---
Surgery/Procedure H&P Update DATE OF PROCEDURE: February 26, 2024 DATE H&P PERFORMED: 02/18/24 H&P UPDATE INFORMATION: I have reviewed H&P completed within last 30 days, I have examined patient prior to procedure and No changes to prior documentation PREOP DIAGNOSIS: abnormal pap PLANNED PROCEDURE: Operation Date: 02/26/24 10:05 Proposed Procedures p Cervical Conization 73953, R87.613(Not Applicable) - Blair Amato MD
[2024-02-26] MEDS: vasopressin 20 unit/mL INJ INJECTION (10:01)
[2024-02-26] MEDS: ondansetron 2 mg/ML SDV 2 mL 4 MG (10:43)
--- NOTE | 2024-02-26 10:45 | PM.OP ---
Operative Report Date of procedure: February 26, 2024 Pre-op diagnosis: abnormal pap Post-op diagnosis: same Post-op findings: grossly normal-appearing cervix Procedure done: Electrosurgical loop excision of the cervix Implants: none Specimens removed/disposition: cervical cone Surgeon: Blair Amato MD Anesthesia: MAC Estimated blood loss (mL): 5 Complications: none Findings: grossly normal-appearing cervix Condition: stable Disposition: PACU Brief History: 33 y.o. with abnormal pap, c/w high-grade squamous epithelial lesion Procedure: Informed consent signed The patient was taken to the operating room and placed supine on the table. MAC anesthesia was induced. The patient was placed in dorsolithotomy position. The patient was prepped and draped in the usual sterile fashion. A bivalve speculum was placed in the vagina. The anterior lip of the cervix was grasped with a single toothed tenaculum. The cervix was then infiltrated at the cervicovaginal junction with 20 U of vasopressin to decrease bleeding. Electrosurgical loop excision of the cervix was done to a depth of approximately 5 mm. No bleeding was seen. Excellent hemostasis was noted. All instruments were then removed. The patient was placed supine, awakened, and taken to the recovery room. Postoperative condition: stable EBL: less than 5 cc Complications: none Sponge and instrument counts were correct x two
--- NOTE | 2024-02-26 11:35 | ANE.PACU2 ---
Inpatient post-anesthesia follow up: Airway intact: Yes Vital signs: Temperature 98.6 F Pulse Rate 96 Respiratory Rate 17 Blood Pressure 141/85 Pulse Oximetry 94 Oxygen Delivery Me thod Room Air Oxygen Flow Rate 6 Fraction of Inspir ed Oxygen Hydration adequate: Yes Nausea and vomiting: No Pain level: 1 Mental status: Baseline
== END 2024-02-26 11:35 | disposition home or self-care (01) ==
PROVIDERS: Anesthesiology; PCP Family Medicine; Visit Provider Obstetrics & Gynecology
PROC: 0UBC7ZZ Excision of Cervix, Via Natural or Artificial Opening (ICD-10-PCS; CPT 57520; principal; 2024-02-26 09:55)
DX: D06.0 Carcinoma in situ of endocervix (principal); Z87.891 Personal history of nicotine dependence
CPT/HCPCS: 57522; 81025; 88307; J1100; J1200; J2250; J2405; J2704; J3010; J3490; J7030

== ENCOUNTER 2024-08-12 10:32 | Observation (INO) | payer MEDICAID, SELFPAY ==
--- NOTE | 2024-08-11 23:03 | P.HP_ITS ---
Providers/Chief Complaint Admitting Physician: Blair Amato MD Primary MANAGER OF TRANSPORTATION: Blair Amato MD Primary Care Provider: Willy Pacheco MD Chief Complaint: D60.9 HPI MANAGER OF TRANSPORTATION History of Present Illness Sherie Salmon is a 34 year old female A1 h/o HGSIL on Pap h/o conization of cervix February 26, 2024 pathology - HGSIL, KERWIN II-III involving the transformation zone and margin now scheduled for total vaginal hysterectomy Present Details Date of Last Menstrual Period: 07/16/24 Calculated Date of Delivery: 04/22/25 Gestational Age Based on Last Menstrual Period: 3 Medications/Allergies Home Medications ?Medication ?Instructions ?Recorded ?Confirmed ?Last Taken ?Type ASO brace #1 ea 04/29/23 08/11/24 Unkn own Rx Allergies Allergy/AdvReac Type Severity Reaction Status Date / Time adhesive Allergy Severe rash, Verified 05/25/24 08:20 blisters and peeling of skin latex Allergy Mild itching Verified 05/25/24 08:20 burning codeine Allergy itching, Verified 05/25/24 08:20 rash Penicillins Allergy ALGY-Anaphy Verified 05/25/24 08:20 laxis PFSH MANAGER OF TRANSPORTATION PFSH: Medical History Vaginal delivery Active labor No pertinent past medical history neghx: htn,dm,thyroid,dvt/pe PCP: [facility] Abnormal Pap smear of cervix Surgical History S/P tonsillectomy and adenoidectomy (07/02/08) Performed at [facility] in [place], [place] Family History Family/Other Diabetes Maternal Uncle Breast cancer Maternal Aunt--dx age 60's Ovarian cancer Maternal Aunt--dx age late 30's Stroke Mother Hypertension Diabetes Father Hypertension Denies family history of Heart disease Thyroid disease Social History Smoking and tobacco/nicotine status: former use of tobacco/nicotine Other Female Reproductive History: Hx Age of Menarche: 8 History History History 5 Term 4 0 Miscarriages/Ectopic 1 Living Children 4 Physical Exam Const: COMMON NORMALS: no acute distress, average body habitus, patient oriented x3, healthy appearing, alert and well nourished Resp: COMMON NORMALS: normal respiratory effort and clear to auscultation bilaterally Cardio: COMMON NORMALS: regular rate and regular rhythm GI: COMMON NORMALS: Normal to inspection, nondistended, normoactive bowel sounds present, Soft to palpation and non-tender Results Labs OB ([facility]): Obstetrics US 11/18/23 Blood Type O Positive 01/05/24 Antibody Screen Negative 01/05/24 Hct 29.8 % (36-47) L 01/07/24 Hgb 9.90 g/dL (11.27-16.99) L 01/07/24 Rho(D) Type Rh positive 01/05/24 Plt Count 212 10^3/cmm (157-399) 01/07/24 Hep Bs Antigen Non-reactive (Nonreactive) 06/06/23 Hepatitis C Antibody Non-reactive (Nonreactive) 06/06/23 Rubella IgG Antibody 122.2 IU/mL (0.0-10.0) H 06/06/23 RPR Nonreactive (Nonreactive) 06/06/23 HIV 1&2 Ab & HIV 1 Ag Non-reactive (Non-Reactiv) 06/06/23 TSH 0.66 uIU/mL (0.27-4.20) 06/06/23 Free T4 1.40 ng/dL (0.82-1.77) 06/06/23 Cystic Fibrosis Screen Negative 06/06/23 Glucose 1 Hr 50 gm 126 mg/dL (85-140) 10/22/23 HCG, Qual Positive (Negative) H 05/07/23 Urine Opiates Screen Negative ng/mL (Negative) 06/06/23 Ur Barbiturates Screen Negative ng/mL (Negative) 06/06/23 Ur Phencyclidine Scrn Negative ng/mL (Negative) 06/06/23 Ur Amphetamines Screen Negative ng/mL (Negative) 06/06/23 U Benzodiazepines Scrn Negative ng/mL (Negative) 06/06/23 Urine Cocaine Screen Negative ng/mL (Negative) 06/06/23 U Marijuana (THC) Screen Negative ng/mL (Negative) 06/06/23 Micro Urine Specimen 06/06/23 Pap Smear Interpret See note A 07/07/23 A&P Assessment and plan (1) Severe cervical dysplasia: KERWIN III of cervix, involving transformation zone and margin Plan total vaginal hysterectomy procedure and risks explained to patient Risks include, but not limited to, infection; bleeding; injury to internal organs, such as bladder, bowel; anesthesia; blood transfusions Also explained that occasionally, the vaginal hysterectomy may need to be convertd to an abdominal approach if necessary patient understands and wants to proceed PDMP PDMP Reviewed: Not Reviewed Attestations Medical Necessity Statement*: patient with cervical KERWIN III, now scheduled for hysterectomy Coding Level of Care Code Acute Code for Chg Fwd Diagnoses Severe cervical dysplasia D06.9 Time Spent (min) 30
[2024-08-12] VITALS (24 sets, daily range): BP systolic 98–145; BP diastolic 50–90; PULSE 67–110; RESP 12–18; TEMP 36.6–37.4; O2SAT 91–98; BMI 30.5
[2024-08-12] MEDS: sodium chloride 0.9% 1,000 ML 30 ML IV (06:34)
--- NOTE | 2024-08-12 06:48 | W.PM.OPSUD ---
Surgery/Procedure H&P Update DATE OF PROCEDURE: August 12, 2024 DATE H&P PERFORMED: 08/11/24 H&P UPDATE INFORMATION: I have reviewed H&P completed within last 30 days, I have examined patient prior to procedure and No changes to prior documentation PREOP DIAGNOSIS: severe cervical dysplasia PLANNED PROCEDURE: Operation Date: 08/12/24 07:00 Proposed Procedures p Total Vaginal Hysterectomy 51558, D60.9, R87.610(Not Applicable) - Blair Amato MD
--- NOTE | 2024-08-12 06:54 | P.ANESASSM_ITS ---
Pre-Anesthetic Assessment Height/Weight: Height 5 ft 7 in Weight 195 lb Temp Pulse Resp BP Pulse Ox O2 Del Method 97.8 F 110 H 18 145/88 97 Room Air 08/12/24 06:45 08/12/24 06:45 08/12/24 06:45 08/12/24 06:45 08/12/24 06:45 08/12/24 06:45 Preop Diagnosis: severe cervical dysplasia Operation Date: 08/12/24 07:00 Proposed Procedures p Total Vaginal Hysterectomy 88496, D60.9, R87.610(Not Applicable) - Blair Amato MD Was Beta Kaylynn taken within 24 hours: N/A Was Clonidine taken within 24 hours: N/A Last intake: Intake Last Liquid Date 08/11/24 Last Liquid Time 23:30 Last Solid Date 08/11/24 Last Solid Time 22:30 Social No alcohol and No tobacco Exam alert, oriented x 3, clear to auscultation bilaterally and regular rate & rhythm Airway Submandibular: within normal limits Cervical ROM: within normal limits Mallampati: Class II Dentition: full Anesthetic Plan ASA status: 2 Anesthesia: General Other: No prior issues with anesthesia, prior GA with LMA size 4 without issues NPO since yesterday Patient is extremely nervous this morning Denies any cardiac or pulmonary issues. Quit smoking in 2009 Very active at baseline Plan for general anesthesia Medications/Allergies Home Medications ?Medication ?Instructions ?Recorded ?Confirmed ?Last Taken ?Type ASO brace #1 ea 04/29/23 08/11/24 Unkn own Rx Allergies Allergy/AdvReac Type Severity Reaction Status Date / Time adhesive Allergy Severe rash, Verified 05/25/24 08:20 blisters and peeling of skin latex Allergy Mild itching Verified 05/25/24 08:20 burning codeine Allergy itching, Verified 05/25/24 08:20 rash Penicillins Allergy ALGY-Anaphy Verified 05/25/24 08:20 laxis Current Medications Generic Name Dose Route Start Last Admin Trade Name Freq PRN Reason Stop Dose Admin Sodium Chloride 1,000 mls @ 30 mls/hr 08/12/24 06:15 08/12/24 06:34 Sodium Chloride 0.9% IV 08/13/24 06:14 30 mls/hr .Q24H ADRIANA Administration PFSH Anesthesia Medical History Vaginal delivery Active labor No pertinent past medical history neghx: htn,dm,thyroid,dvt/pe PCP: [facility] Abnormal Pap smear of cervix Surgical History S/P tonsillectomy and adenoidectomy (07/02/08) Performed at [facility] in [place], [place] Family History Family/Other Diabetes Maternal Uncle Breast cancer Maternal Aunt--dx age 60's Ovarian cancer Maternal Aunt--dx age late 30's Stroke Mother Hypertension Diabetes Father Hypertension Denies family history of Heart disease Thyroid disease Social History Smoking and tobacco/nicotine status: former use of tobacco/nicotine Female Reproductive History Date of last menstrual period: 07/16/24 Data Anesthesia Cardiac Studies: No Data to Display
[2024-08-12] MEDS: metroNIDAZOLE IV 500 MG/100 ML PREMIX 100 MG IV (07:07)
[2024-08-12 07:16] LABS: OR HCG Qualitative Urine Negative (Negative)
[2024-08-12] MEDS: scopolamine 1 mg PATCH 1 PATCH TRANSDERMA (07:34)
[2024-08-12] MEDS: lidocaine-epi 1% 20 mL INJ INJECTION (09:11)
[2024-08-12] MEDS: HYDROmorphone 1 mg/mL INJ 1ml (10:36)
--- NOTE | 2024-08-12 11:15 | PM.OP ---
Operative Report Date of procedure: August 12, 2024 Pre-op diagnosis: cervical KERWIN III Post-op diagnosis: same Post-op findings: normal-sized uterus normal ovaries normal fallopian tubes Procedure done: Total vaginal hysterectomy bilateral salpingectomy Specimens removed/disposition: uterus and fallopian tubes, sent to pathology Surgeon: Blair Amato MD Anesthesia: General Estimated blood loss (mL): 350 Complications: none Findings: normal-sized uterus normal ovaries normal fallopian tubes Condition: stable Disposition: PACU Brief History: 34 y.o. with cervical KERWIN III Procedure: Informed consent signed. The patient was taken to the operating room and placed supine on the table. General endotracheal anesthesia was induced. The patient was placed in dorsal lithotomy position, prepped, and draped in the usual sterile fashion. A Espinoza catheter was placed. A Bookwalter retractor was placed in the vagina. The cervix was grasped with a single-toothed tenaculum. Approximately 10 cc of 2% lidocaine with epinephrine was injected circumferentially submucosally at the cervico-vaginal junction. The cervix was circumferentially incised with the bovie. The bladder was dissected off the pubovesical cervical fascia anteriorly with Metzenbaum scissors and also bluntly with a sponge stick. The anterior cul-de-sac was entered sharply with Metzenbaum scissors, avoiding the bladder. The posterior cul-de-sac was entered using the Metzenbaum scissors. The uterosacral ligaments on both sides were isolated and ligated with O-Vicryl suture ligature. The Ligasure device was used to coagulate, cut and ligate the uterosacral ligaments and the cardinal ligaments on both sides. The uterine arteries were clamped, cut, and ligated with the Ligasure device. Good hemostasis was seen. The broad ligaments on both sides were then clamped, ligated, and cut using the Ligasure device. Both cornua were similarly excised. The uterus was thus removed and sent to pathology. The ovaries were seen to be normal. The fallopian tubes were removed using the Ligasure device. The pedicles were again inspected and was seen to be hemostatic. The peritoneum was then closed with O-Vicryl suture after the bladder was drained. The vaginal cuff was then closed beginning with transfixing the cardinal and uterosacral ligaments. The cuff was closed with O-Vicryl suture in a running locked fashion. All instruments were then removed. Good hemostasis was observed. Espinoza catheter was in place. The patient was then place supine and awakened and taken to the PACU in good condition. Postoperative condition: stable EBL: 350 cc Sponge, needle, and instrument counts were correct x two
[2024-08-12] MEDS: dextrose 5%-lactated ringers 1,000 ML 125 ML IV (13:55)
[2024-08-12] MEDS: HYDROcodone-acetaminophen 5-325 mg Tablet PO (16:32)
[2024-08-12] MEDS: ketorolac 30 mg/mL INJ IVP ×2 (16:33→22:34)
[2024-08-12] MEDS: docusate sodium 100 mg Capsule PO (20:26)
[2024-08-13] MEDS: HYDROcodone-acetaminophen 5-325 mg Tablet PO ×2 (03:46→09:52)
[2024-08-13 04:00] VITALS: BP 114/58; PULSE 61; RESP 18; TEMP 36.6; O2SAT 98
[2024-08-13] MEDS: ketorolac 30 mg/mL INJ IVP (04:23)
[2024-08-13 07:25] LABS: Hematocrit 31.5 % (36-47); Mean Corpuscular HGB Conc 31.7 g/dL (30-55); Mean Corpuscular Hemoglobin 26.8 pg (27-33); Mean Corpuscular Volume 84.5 fl (85-98); Mean Platelet Volume 11.3 fL (7.4-10.4); Platelet Count 219 10^3/cmm (157-399); Red Blood Count 3.73 10^6/uL (3.85-5.65); Red Cell Distribution Width 13.5 % (12.1-15.1); White Blood Count 11.17 10^3/uL (3.29-11.43)
[2024-08-13] MEDS: docusate sodium 100 mg Capsule PO (08:19)
[2024-08-13 08:20] VITALS: BP 122/79; PULSE 87; RESP 16; TEMP 36.7
[2024-08-13 10:27] VITALS: BP 105/57; PULSE 78; RESP 18; TEMP 36.8; O2SAT 99
[2024-08-13 10:28] VITALS: BP 105/57; PULSE 78; RESP 18; TEMP 36.8; O2SAT 99
== END 2024-08-13 10:48 | disposition home or self-care (01) ==
LOC: OBGYN 10:36
PROVIDERS: Student in an Organized Health Care Education/Training Program; Admitting Provider Obstetrics & Gynecology; Visit Provider Obstetrics & Gynecology
PROC: (CPT 58262; principal; 2024-08-12 07:00)
DX: D06.9 Carcinoma in situ of cervix, unspecified (principal); Z87.891 Personal history of nicotine dependence
CPT/HCPCS: 58262; 58700; 36415; 81025; 85027; 86850; 86900; 88307; A4216; G0378; J1100; J1171; J1200; J1885; J2250; J2371; J2405; J2704; J3010; J3490; J7030; J7121; J9999

== ENCOUNTER 2024-11-23 16:12 | Outpatient (CLI) | payer MEDICAID, SELFPAY ==
--- NOTE | 2024-11-23 16:23 | XRR_ITS ---
PROCEDURE INFORMATION: Exam: XR Chest Exam date and time: 11/23/2024 4:40 PM Age: 34 years old Clinical indication: Angina and cough and shortness of breath; Additional info: Acute cough TECHNIQUE: Imaging protocol: Radiologic exam of the chest. Views: 2 views. COMPARISON: No relevant prior studies available. FINDINGS: Lungs: No focal consolidation. Small calcified granuloma in the right upper lung. Pleural spaces: No pleural effusion. No pneumothorax. Heart/Mediastinum: No cardiomegaly. Bones/joints: No acute abnormality. XR/XR chest 2V* [id number] IMPRESSION: No acute pulmonary process.
== END 2024-11-23 16:13 | disposition home or self-care (01) ==
PROVIDERS: PCP Nurse Practitioner Family; Visit Provider Nurse Practitioner Family
DX: R05.1 Acute cough (principal); R91.8 Other nonspecific abnormal finding of lung field
CPT/HCPCS: 71046